=== PATIENT | male | born 1985 | race Caucasian/White ===

== ENCOUNTER 2019-09-03 06:06 | Emergency (ER) | payer BC, SELFPAY ==
--- NOTE | ~2019-09-03 | CT_ITS ---
EXAMINATION: CT abdomen pelvis wo con DATE: 09/03/2019 06:47 INDICATION: Left lower quadrant abdominal pain and flank pain. TECHNIQUE: Computed tomography (CT) of the abdomen and pelvis was performed without intravenous contr ast. Automated exposure control and iterative reconstruction technique were employed. The dose-length product was 403.06 mGy-cm. COMPARISON: 06/14/2013 FINDINGS: Lung bases are clear. Heart size is normal. No pericardial or pleural effusion. Small sliding-type hi atal hernia. Approximate 8 mm hypodense lesion in segment 8 of the liver. Similar sized and ill-defin ed hypodense lesion in the spleen which is unchanged since the prior study likely benign hemangioma. Gallbladder, pancreas, bilateral adrenal glands and right kidney are normal. There is an obstructing 1 mm stone in the distalmost left ureter approximately 1 cm from the ureterovesicular junction. There is mild left hydroureteronephrosis and left periureteral stranding. Wall thickening throughout the c olon and at several loops of small bowel which appears to demonstrate fat attenuation most likely fat ty infiltration related to body habitus no bowel obstruction. Appendix is normal. Bladder is normal. No free intraperitoneal gas or fluid. Fat-containing umbilical hernia. No pathologically enlarged abd ominal or pelvic lymphadenopathy. Mild thoracolumbar dextrocurvature. IMPRESSION: 1. Obstructing 1 mm distal left ureteral stone with mild left hydroureteronephrosis. 2. Likely benign 8 mm ill-defined hypodense hepatic lesion which in the absence of known liver diseas e or primary malignancy is likely benign requiring no further follow-up. Patient does have history of liver disease or primary cancer would recommend follow-up contrast-enhanced MRI in 3-6 months. 3. Fat-containing umbilical hernia. Reviewed, dictated and finalized at location A. IMPRESSION: 1. Obstructing 1 mm distal left ureteral stone with mild left hydroureteronephr osis. 2. Likely benign 8 mm ill-defined hypodense hepatic lesion which in the absence of known liver disease or primary malignancy is likely benign requiring no fur ther follow-up. Patient does have history of liver disease or primary cancer wo uld recommend follow-up contrast-enhanced MRI in 3-6 months. 3. Fat-containing umbilical hernia.
[2019-09-03 06:10] VITALS: BP 173/105; PULSE 77; RESP 15; TEMP 36.6; O2SAT 90
[2019-09-03 06:26] LABS: Basophils Absolute Auto 0.1 K/mm3 (0.0-0.1); Basophils Percent Auto 0.6 % (0.2-1.2); Eosinophils Absolute Auto 0.1 K/mm3 (0-0.3); Eosinophils Percent Auto 0.9 % (0-4.4); Hematocrit 42.6 % (42.0-52.0); Hemoglobin 14.8 g/dL (14.0-18.0); Immature Granulocyte Absolute 0.06 K/mm3 (0.00-0.031); Immature Granulocyte Percent A 0.5 % (0-0.5); Lymphocytes Absolute Auto 1.86 K/mm3 (0.9-3.2); Lymphocytes Percent Auto 15.8 % (18.3-44.2); Mean Corpuscular HGB Conc 34.7 g/dl (32-36); Mean Corpuscular Hemoglobin 31.8 pg (26-34); Mean Corpuscular Volume 91.4 fl (80-100); Mean Platelet Volume 9.8 fl (7.4-10.4); Monocytes Percent Auto 8.3 % (2.6-8.5); Neutrophils Absolute Auto 8.7 K/mm3 (1.3-6.7); Neutrophils Percent Auto 73.9 % (45.5-73.1); Platelet Count Result 240 k/mm3 (150-375); Red Blood Count 4.66 M/mm3 (4.6-6.20); Red Cell Distribution Width 12.7 % (11.5-14.5); White Blood Count 11.8 K/mm3 (4.5-10.0)
[2019-09-03] MEDS: SODIUM CHLORIDE 0.9% IV 1,000 ML 999 ML IV CONT ×2 (06:28→07:27)
[2019-09-03] MEDS: ONDANSETRON INJ 4 MG/2 ML VIAL IV PUSH (06:31)
[2019-09-03] MEDS: MORPHINE SULFATE 4 MG/ML INJ IV PUSH (06:31)
--- NOTE | 2019-09-03 06:31 | ED.ABDPAIN ---
HPI - Abdominal Pain General Chief Complaint: Abdominal Pain <Bib Clark MD - Last Filed: 09/03/19 07:10> Stated Complaint: abd pain <Bib Clark MD - Last Filed: 09/03/19 07:10> Time Seen by Provider: 09/03/19 06:17 <Bib Clark MD - Last Filed: 09/03/19 07:10> History of Present Illness HPI narrative: Patient is a 34-year-old male who presents to the ER with sudden onset of lower quadrant abdominal pain. Began at 3 AM. Radiates to left back. No fevers or chills. Pain is sharp and coming in waves. Associated with nausea and diaphoresis. Has not had pain like this before. Has found no alleviating factors. <Bib Clark MD - Last Filed: 09/03/19 07:10> Related Data Home Medications: Home Medications Medication Instructions Recorded Confirmed lamotrigine 09/03/19 <Bib Clark MD - Last Filed: 09/03/19 07:10> Allergies/Adverse Reactions: Allergies Allergy/AdvReac Type Severity Reaction Status Date / Time amoxicillin Allergy Intermediate ATRIAL FIB Verified 06/05/19 09:01 <Bib Clark MD - Last Filed: 09/03/19 07:10> Review of Systems Review of Systems: All systems reviewed & are unremarkable except as noted in HPI and below <Bib Clark MD - Last Filed: 09/03/19 07:10> Constitutional: Constitutional: Denies chills, Denies fever(s) and Denies weakness <Bib Clark MD - Last Filed: 09/03/19 07:10> Comments: Positive for diaphoresis <Bib Clark MD - Last Filed: 09/03/19 07:10> ENT: Denies nasal congestion and Denies sore throat <Bib Clark MD - Last Filed: 09/03/19 07:10> Cardiovascular: Cardiovascular: Denies chest pain and Denies radiating jaw, neck or arm pain <Bib Clark MD - Last Filed: 09/03/19 07:10> Respiratory: Respiratory: Denies cough and Denies dyspnea <Bib Clark MD - Last Filed: 09/03/19 07:10> Gastrointestinal: Gastrointestinal: Reports abdominal pain, Reports nausea and Denies vomiting <Bib Clark MD - Last Filed: 09/03/19 07:10> Genitourinary: Genitourinary: Reports hematuria, Denies oliguria, Denies dysuria and Reports urinary frequency <Bib Clark MD - Last Filed: 09/03/19 07:10> PMFSH Past Medical History Medical History: Medical History (Updated 09/03/19 @ 07:26 by Xiomara Thompson MD) No pertinent past medical history <Bib Clark MD - Last Filed: 09/03/19 07:10> Surgical History Surgical History: Surgical History (Updated 09/03/19 @ 06:37 by Bib Clark MD) History of tonsillectomy <Bib Clark MD - Last Filed: 09/03/19 07:10> Family History Family History: Family History (System 06/05/19 @ 09:01 by Yudy Sanabria) Mother Depression Family history of osteoarthritis Father Hypertension Family history of heart disease in male family member before age 55 <Bib Clark MD - Last Filed: 09/03/19 07:10> Social History Social History: Social History (System 06/05/19 @ 09:01 by Yudy Sanabria) Smoking status: Former smoker Alcohol intake: current <Bib Clark MD - Last Filed: 09/03/19 07:10> Exam Narrative: Exam Narrative: GENERAL: Uncomfortable-appearing, well-nourished, and in mild distress. HEAD: Normocephalic, atraumatic. ENT: Mucous membranes moist. CHEST: Clear to auscultation. No respiratory distress. HEART: Regular rate and rhythm. Normal peripheral pulses. ABDOMEN: Soft, nontender, nondistended. EXTREMITIES: Normal range of motion. No edema. SKIN: Cool, pale, diaphoretic, no rash. NEURO: Alert and oriented x3. <Bib Clark MD - Last Filed: 09/03/19 07:10> Course Course Emergency Course: Awaiting CT results. Toradol added as no pain control with morphine. SILVIANO to Dr. Thompson. <Bib Clark MD - Last Filed: 09/03/19 07:10> Reevaluation(s) Reevaluation #1: Assumed care from Dr. Clark at 7 AM. Face-to-f
[2019-09-03 06:32] LABS: Add Urine Microscopic? YES; Appearance Urine Turbid (Clear); Bilirubin Urine Negative (Negative); Blood Urine 3+ (Negative); Color Urine Yellow (Yellow); Glucose Urine UA Negative (Negative); Ketones Urine Trace mg/dL (Negative); Leukocyte Esterase Ur Negative LEU/UL (Negative); Mucus Urine Few /lpf; Nitrate Urine Negative (Negative); Protein Urine 2+ mg/dL (Negative); RBC Urine >75 /hpf (0-2); Specific Grav Ur 1.027 (1.001-1.035); Uric Acid Crystals Urine Many /hpf; Urobilinogen Urine Negative mg/dL (<2.0)
[2019-09-03 06:38] LABS: Blood Urea Nitrogen 13 mg/dL (9-20); Calcium 9.4 mg/dL (8.4-10.2); Carbon Dioxide 20 mmol/L (22-30); Chloride 100 mmol/L (98-107); Estimated Glomerular Filt Rate > 60; Glucose 155 mg/dL (75-110); Potassium 3.6 mmol/L (3.4-5.0); Sodium 133 mmol/L (137-145)
[2019-09-03] MEDS: KETOROLAC 30 MG/ML VIAL (*BKC) IV PUSH (07:04)
[2019-09-03 09:12] VITALS: BP 160/55; PULSE 72; RESP 16; O2SAT 99
[2019-09-03 10:26] VITALS: BP 160/72; PULSE 80; RESP 16; O2SAT 99
== END 2019-09-03 10:28 | disposition home or self-care (01) ==
PROVIDERS: Emergency Medicine; Emergency Provider Emergency Medicine
DX: N13.2 Hydronephrosis with renal and ureteral calculous obstruction (principal); K42.9 Umbilical hernia without obstruction or gangrene; K76.9 Liver disease, unspecified
CPT/HCPCS: 36415; 74176; 80048; 81001; 85025; 87086; 96361; 96365; 96375; 99284; J0696; J1885; J2270; J2405; J7030

== ENCOUNTER 2019-09-05 12:55 | Emergency (ER) | payer BC, SELFPAY ==
--- NOTE | ~2019-09-05 | CT_ITS ---
EXAMINATION: CT abdomen pelvis wo con DATE: 09/05/2019 15:41 INDICATION: Left flank pain and hematuria TECHNIQUE: Computed tomography (CT) of the abdomen and pelvis was performed without intravenous contr ast. The dose-length product was 317.03 mGy-cm. Automated exposure control and iterative reconstructi on technique were employed. COMPARISON: CT dated 09/03/2019 FINDINGS: Lung bases unremarkable. Heart size normal. No significant pleural or pericardial effusion. Small hiatal hernia. No significant vascular abnormality. No lymphadenopathy. Small fat-containing umbilical hernia. The liver, spleen, pancreas, adrenal glands and right kidney a re unremarkable. There is mild left perinephric stranding. There is left hydroureteronephrosis to the UVJ with periureteral edema. No obstructing stone or mass identified. Bladder is unremarkable. There is focal saccular appearance to the distal sigmoid colon, nonspecific, although no obstructing mass identified. No free air or free fluid. Nonobstructive bowel gas pattern. Normal appendix. IMPRESSION: 1. Left hydroureteronephrosis with. Nephric and periureteral edema. No obstructing stone identified. Differential diagnosis includes sequela of recently passed stone and ascending urinary tract infectio n. Reviewed, dictated and finalized at location A. IMPRESSION: 1. Left hydroureteronephrosis with. Nephric and periureteral edema. No obstruct ing stone identified. Differential diagnosis includes sequela of recently passe d stone and ascending urinary tract infection.
[2019-09-05 13:37] VITALS: BP 157/98; PULSE 72; RESP 24; TEMP 36.1; O2SAT 99
[2019-09-05 13:56] LABS: Basophils Percent Auto 0.3 % (0.2-1.2); Eosinophils Percent Auto 0.1 % (0-4.4); Hematocrit 42.1 % (42.0-52.0); Hemoglobin 14.6 g/dL (14.0-18.0); Immature Granulocyte Absolute 0.07 K/mm3 (0.00-0.031); Immature Granulocyte Percent A 0.6 % (0-0.5); Lymphocytes Absolute Auto 0.79 K/mm3 (0.9-3.2); Lymphocytes Percent Auto 7.1 % (18.3-44.2); Mean Corpuscular HGB Conc 34.7 g/dl (32-36); Mean Corpuscular Hemoglobin 31.6 pg (26-34); Mean Corpuscular Volume 91.1 fl (80-100); Mean Platelet Volume 9.5 fl (7.4-10.4); Monocytes Absolute Auto 0.6 K/mm3 (0.1-0.6); Monocytes Percent Auto 5.6 % (2.6-8.5); Neutrophils Absolute Auto 9.7 K/mm3 (1.3-6.7); Neutrophils Percent Auto 86.3 % (45.5-73.1); Platelet Count Result 241 k/mm3 (150-375); Red Blood Count 4.62 M/mm3 (4.6-6.20); Red Cell Distribution Width 12.7 % (11.5-14.5); White Blood Count 11.2 K/mm3 (4.5-10.0)
[2019-09-05 14:15] LABS: Alanine Aminotransferase 69 U/L (4-50); Albumin Level 4.8 g/dL (3.5-5.1); Alkaline Phosphatase 87 U/L (38-126); Aspartate Amino Transferase 74 U/L (17-59); Bilirubin,Total 0.5 mg/dL (0.2-1.3); Blood Urea Nitrogen 9 mg/dL (9-20); Calcium 9.6 mg/dL (8.4-10.2); Carbon Dioxide 21 mmol/L (22-30); Chloride 103 mmol/L (98-107); Estimated CRCL calculation 88 ml/min; Estimated Glomerular Filt Rate > 60; Glucose 121 mg/dL (75-110); Lipase 59 U/L (23-300); Potassium 3.5 mmol/L (3.4-5.0); Sodium 135 mmol/L (137-145)
[2019-09-05 14:50] LABS: Add Urine Microscopic? YES; Appearance Urine Turbid (Clear); Bilirubin Urine Negative (Negative); Blood Urine 3+ (Negative); Color Urine Yellow (Yellow); Glucose Urine UA Negative (Negative); Ketones Urine 2+ mg/dL (Negative); Leukocyte Esterase Ur Trace LEU/UL (Negative); Mucus Urine Few /lpf; Nitrate Urine Negative (Negative); Protein Urine 1+ mg/dL (Negative); RBC Urine >75 /hpf (0-2); Specific Grav Ur 1.027 (1.001-1.035); Squamous Epithelial Cell Urine Moderate /hpf (Few); Urobilinogen Urine Negative mg/dL (<2.0)
[2019-09-05] MEDS: ONDANSETRON INJ 4 MG/2 ML VIAL IV PUSH (15:28)
[2019-09-05] MEDS: MORPHINE SULFATE 4 MG/ML INJ IV PUSH (15:28)
[2019-09-05] MEDS: SODIUM CHLORIDE 0.9% IV 1,000 ML 999 ML IV CONT ×2 (15:28→16:26)
[2019-09-05] MEDS: KETOROLAC 15 MG/ML VIAL (*BKC) IV PUSH (16:26)
--- NOTE | 2019-09-05 16:47 | ED.ABDPAIN ---
HPI - Abdominal Pain General Chief Complaint: Abdominal Pain Stated Complaint: Kidney stones - seen tues Time Seen by Provider: 09/05/19 14:32 History of Present Illness HPI narrative: Patient is a 34-year-old male who presents the ER with left lower quadrant and left flank pain. Patient was seen 2 days ago for a 1 mm stone. He reports he was able to pass the stone at home but continues to have discomfort. Toradol helped last time. No fevers or chills. When pain comes he is nauseated and vomits and also becomes diaphoretic. This similar to his previous presentation. Reports he has been on ciprofloxacin for 4 doses. Urine was cultured and negative on the previous visit. He has not been taking Flomax. Related Data Home Medications Medication Instructions Recorded Confirmed lamotrigine 09/03/19 Allergies Allergy/AdvReac Type Severity Reaction Status Date / Time amoxicillin Allergy Intermediate ATRIAL FIB Verified 06/05/19 09:01 Review of Systems Review of Systems: All systems reviewed & are unremarkable except as noted in HPI and below Constitutional: Constitutional: Denies chills, Denies fever(s) and Denies weakness ENT: Denies nasal congestion and Denies sore throat Cardiovascular: Cardiovascular: Denies chest pain and Denies rapid heart rate Gastrointestinal: Gastrointestinal: Reports abdominal pain, Denies diarrhea, Reports nausea and Reports vomiting Genitourinary: Genitourinary: Denies dysuria, Reports urinary frequency and Denies urinary incontinence PMFSH Past Medical History Medical History (Updated 09/05/19 @ 17:45 by Bib Clark MD) Kidney stone Surgical History Surgical History (Updated 09/03/19 @ 06:37 by Bib Clark MD) History of tonsillectomy Family History Family History (System 06/05/19 @ 09:01 by uYdy Sanabria) Mother Depression Family history of osteoarthritis Father Hypertension Family history of heart disease in male family member before age 55 Social History Social History (System 06/05/19 @ 09:01 by Yudy Sanabria) Smoking status: Former smoker Alcohol intake: current Exam Narrative: Exam Narrative: GENERAL: Uncomfortable-appearing, well-nourished, and in no acute distress. HEAD: Normocephalic, atraumatic. CHEST: Clear to auscultation. No respiratory distress. HEART: Regular rate and rhythm. Normal peripheral pulses. ABDOMEN: Soft, mild left lower abdominal discomfort without guarding, nondistended. EXTREMITIES: Normal range of motion. No edema. SKIN: Warm, moist, no rash. NEURO: Alert and oriented x3. PSYCH: Normal mood and affect. Course Course Emergency Course: Pain markedly improved with Toradol. Informed of results. Patient dehydrated will receive 2 L of IV fluid. We will also start him on Flomax here. Recommend he continue ciprofloxacin. Discontinue [place] and start Percocet at home. Needs follow-up with urology. Vital Signs Vital signs: Vital Signs Temperature 97.0 F L 09/05/19 13:37 Pulse Rate 72 09/05/19 13:37 Respiratory Rate 24 H 09/05/19 13:37 Blood Pressure 157/98 H 09/05/19 13:37 Pulse Oximetry 99 09/05/19 13:37 Temperature 97.0 F L 09/05/19 13:37 Pulse Rate 72 09/05/19 13:37 Respiratory Rate 24 H 09/05/19 13:37 Blood Pressure 157/98 H 09/05/19 13:37 Pulse Oximetry 99 09/05/19 13:37 MDM - Abdominal Pain Lab Data Result diagrams: 09/05/19 13:44 09/05/19 13:44 Labs: Lab Results 09/05/19 09/05/19 09/05/19 Range/Units 13:44 13:44 14:28 WBC 11.2 H (4.5-10.0) K/mm3 RBC 4.62 (4.6-6.20) M/mm3 Hgb 14.6 (14.0-18.0) g/dL Hct 42.1 (42.0-52.0) % MCV 91.1 (80-100) fl MCH 31.6 (26-34) pg MCHC 34.7 (32-36) g/dl RDW 12.7 (11.5-14.5) % Plt Count 241 (150-375) k/mm3 MPV 9.5 (7.4-10.4) fl Immature Gran % (Auto) 0.6 H (0-0.5) % Neut % (Auto) 86.3 H (45.5-73.1) % Lymph % (Auto) 7
[2019-09-05 17:00] VITALS: BP 122/80; PULSE 80; RESP 20; TEMP 36.7; O2SAT 99
[2019-09-05] MEDS: TAMSULOSIN HCL 0.4 MG CAPSULE PO (17:14)
== END 2019-09-05 16:00 | disposition home or self-care (01) ==
PROVIDERS: Emergency Provider Emergency Medicine
DX: R10.32 Left lower quadrant pain (principal); Z87.442 Personal history of urinary calculi; Z87.891 Personal history of nicotine dependence; N13.30 Unspecified hydronephrosis
CPT/HCPCS: 36415; 74176; 80053; 81001; 83690; 85025; 96361; 96374; 96375; 99284; A9270; J1885; J2270; J2405; J7030

== ENCOUNTER 2020-09-03 15:29 | Emergency (ER) | payer BC, SELFPAY ==
[2020-09-03 15:43] VITALS: BP 133/90; PULSE 87; RESP 20; TEMP 36.6; O2SAT 98
--- NOTE | 2020-09-03 15:54 | ED.EXTPRO ---
HPI - Extremity Problem General Chief complaint: Extremity Problem,Nontraumatic Stated complaint: lt foot pain Source: patient and RN notes reviewed Limitations: no limitations History of Present Illness HPI Narrative: The patient, previously mostly healthy, presents with left foot pain. States she has a shorter, 1 day history of left foot discomfort at the angle of his ankle where he noticed some superficial swelling adjacent to his veins. He complains of mild pain and improving swelling since. No trauma, redness, Related Data Allergies Allergy/AdvReac Type Severity Reaction Status Date / Time amoxicillin Allergy Intermediate ATRIAL FIB Verified 09/03/20 15:50 Review of Systems Review of Systems: Narrative: General/Constitutional: No weight loss,fever Eyes: N0: Redness,discharge Ears/Nose/Throat: No: Epistaxis,ear discharge Respiratory: Denies: Hemoptysis Gastrointestinal: No Vomiting, Bleeding-rectal Skin: No Lumps, eruption Neurologic: No Focal Weakness,Sz Hematologic: Denies: Petechiae/Purpura Psychiatric: No: Suicida ideationl All Other Systems: Reviewed and Negative [facility] Past Medical History Medical History (Updated 09/03/20 @ 16:59 by Benito Russo MD) Kidney stone Surgical History Surgical History (Updated 09/03/19 @ 06:37 by Bib Clark MD) History of tonsillectomy Family History Family History (System 06/05/19 @ 09:01 by Yudy Sanabria) Mother Depression Family history of osteoarthritis Father Hypertension Family history of heart disease in male family member before age 55 Social History Social History (System 06/05/19 @ 09:01 by Yudy Sanabria) Smoking status: Former smoker Alcohol intake: current Comments At time of signature, agree with nursing past medical, surgical, social and family history. There is no relevant family history pertinent to the presenting complaint Exam Narrative: Exam Narrative: General Appearance: Well appearing, conjunctiva clear Mouth/Throat: Normal appearing, Normal lips. Supple Respiratory: Airway patent, No respiratory distress Skin: Warm, Dry, Normal color;, small somewhat linear, 1.5 cm soft almost cystic swelling below the inferior extensor retinaculum MS-foot: Normal strength (mostly intact, limited flexion/extension by pain), Tenderness (extensor, with mild decreased ROM), Swelling (extensor), Other (no anterior drawer, no collateral laxity, no Achilles tenderness, no fifth MT tenderness) Neurological: A&O x3, Speech clear, CN II-XII intact Psychiatric: Normal mood, Normal affect Course Vital Signs Vital signs: Vital Signs Temperature 97.8 F 09/03/20 15:43 Pulse Rate 87 09/03/20 15:43 Respiratory Rate 20 09/03/20 15:43 Blood Pressure 133/90 09/03/20 15:43 Pulse Oximetry 98 09/03/20 15:43 Temperature 97.8 F 09/03/20 15:43 Pulse Rate 87 09/03/20 15:43 Respiratory Rate 20 09/03/20 15:43 Blood Pressure 133/90 09/03/20 15:43 Pulse Oximetry 98 09/03/20 15:43 Discharge Plan Discharge Clinical Impression: Superficial thrombophlebitis Qualifiers: Superficial thrombophlebitis-Involved body area: lower extremity Laterality: left Qualified Code(s): I80.02 - Phlebitis and thrombophlebitis of superficial vessels of left lower extremity Patient Disposition: Home, Self-Care Condition: Stable Instructions: Ganglion Cysts (ED), Superficial Thrombophlebitis (ED) Additional Instructions: You may take OTC pain medicines also Prescriptions: New tramadol 50 mg tablet 50 mg PO TID PRN (Reason: pain) Qty: 14 RF: 0 Follow-up/Referrals: Rigoberto Najera DO [Primary Care Provider] -
== END 2020-09-03 16:17 | disposition home or self-care (01) ==
PROVIDERS: Emergency Provider Emergency Medicine; PCP Internal Medicine
DX: I80.02 Phlebitis and thrombophlebitis of superficial vessels of left lower extremity (principal); Z87.891 Personal history of nicotine dependence; I34.1 Nonrheumatic mitral (valve) prolapse
CPT/HCPCS: 99213; G0463

== ENCOUNTER 2020-09-07 11:44 | Outpatient (CLI) | payer BC, SELFPAY ==
--- NOTE | ~2020-09-07 | XR_ITS ---
XR foot LT min 3V DATE: 09/07/2020 11:55 INDICATION: Dorsal foot pain TECHNIQUE: 4 views COMPARISON: None FINDINGS: No fracture or dislocation, periosteal reaction or bone destruction. IMPRESSION: Negative Reviewed, dictated and finalized at location B. IMPRESSION: Negative
== END 2020-09-07 11:45 | disposition home or self-care (01) ==
PROVIDERS: PCP Internal Medicine; Visit Provider Clinical Nurse Specialist
DX: M79.89 Other specified soft tissue disorders (principal)
CPT/HCPCS: 73630

== ENCOUNTER 2020-10-23 16:06 | Outpatient (CLI) | payer BC, SELFPAY ==
--- NOTE | ~2020-10-23 | XR_ITS ---
EXAMINATION: XR knee LT min 4V DATE: 10/23/2020 16:35 INDICATION: Left knee pain and swelling. TECHNIQUE: 4 views of left knee were obtained. COMPARISON: None. FINDINGS: Bone alignment is normal. No fracture. Joint spaces are well maintained. There is no knee j oint effusion. There is prepatellar soft tissue swelling, consistent with bursitis. IMPRESSION: 1. Mild prepatellar bursitis. Reviewed, dictated and finalized at location A.
== END 2020-10-23 16:07 | disposition home or self-care (01) ==
LOC: ANHIMG 16:09
PROVIDERS: PCP Internal Medicine; Visit Provider Nurse Practitioner
DX: M25.562 Pain in left knee (principal); M71.562 Other bursitis, not elsewhere classified, left knee
CPT/HCPCS: 73564

== ENCOUNTER 2021-06-11 09:16 | Outpatient (CLI) | payer BC, SELFPAY ==
--- NOTE | ~2021-06-11 | US_ITS ---
EXAMINATION: US abdomen limited EXAM DATE: 06/11/2021 09:56 INDICATION: Elevated liver function tests. TECHNIQUE: Multiple grayscale and Doppler images of the abdomen right upper quadrant were obtained (kylie y a technologist who performed the scan) and subsequently reviewed. There is no prior study for cayla messina. FINDINGS: The pancreatic head and body are normal in appearance. The pancreatic tail is not visualized. The l iver has normal echogenicity and contour. There are no focal liver lesions identified. There is no evidence of intrahepatic biliary duct dilation. Portal venous flow was seen in the hepatopedal, nor mal direction and has normal Doppler waveform. No right-sided hydronephrosis. Common bile duct measures 4 mm, which is normal. The gallbladder wall is normal in thickness, with ex pected amount of distention. No sonographic evidence of pericholecystic fluid. There is no cholelit hiases. Technologist performing exam reports patient did not demonstrate sonographic Romero's sign. Please note that this sign is less reliable in patients who have received pain medication. IMPRESSION: Unremarkable abdominal ultrasound exam. Reviewed, dictated and finalized at location B.
== END 2021-06-11 09:17 | disposition home or self-care (01) ==
PROVIDERS: PCP Internal Medicine; Visit Provider Nurse Practitioner
DX: R74.01 Elevation of levels of liver transaminase levels (principal)
CPT/HCPCS: 76705

== ENCOUNTER 2021-06-16 12:51 | Outpatient (CLI) | payer BC, SELFPAY ==
--- NOTE | ~2021-06-16 | XR_ITS ---
EXAMINATION: XR shoulder LT min 2V DATE: 06/16/2021 13:15 INDICATION: Anterior left clavicle pain. TECHNIQUE: 4 views of left shoulder were obtained. COMPARISON: None. FINDINGS: Bone alignment is normal. No fracture. Joint spaces are well maintained. IMPRESSION: 1. Normal left shoulder. Reviewed, dictated and finalized at location B. IMPRESSION: 1. Normal left shoulder.
--- NOTE | ~2021-06-16 | XR_ITS ---
EXAMINATION: XR knee RT 2V DATE: 06/16/2021 13:15 INDICATION: Right knee pain. Gout. TECHNIQUE: 2 views of right knee with weightbearing were obtained. COMPARISON: None. FINDINGS: Bone alignment is normal. No fracture. There is mild osteoarthritis of patellofemoral shaw rtment. There is a small knee joint effusion. There is mild superficial infrapatellar bursitis. IMPRESSION: 1. Mild right knee osteoarthritis. 2. Small right knee joint effusion. 3. Mild superficial infrapatellar bursitis. Reviewed, dictated and finalized at location B.
[2021-06-16 13:44] LABS: CRP 4.2 mg/dL (<1.0); Uric Acid 10.6 mg/dL (3.5-8.5)
[2021-06-16 13:48] LABS: Iron 59 ug/dL (49-181)
[2021-06-16 13:57] LABS: Percent Iron Saturation 19 % (20-50)
[2021-06-16 14:18] LABS: Hepatitis B Surface Antigen Negative (Negative)
[2021-06-16 14:22] LABS: HIV 1/2 Ab P24 Ag Result Negative (Negative)
[2021-06-16 14:36] LABS: Hepatitis C Virus Antibody Negative (Negative)
[2021-06-21 08:28] LABS: Gliadin AB, IgG <1.0 U/mL (<15.0); Reticulin IgA Negative (Negative); TTG IGA AB <1.0 U/mL (<15.0)
== END 2021-06-16 12:52 | disposition home or self-care (01) ==
PROVIDERS: PCP Internal Medicine; Visit Provider Nurse Practitioner
DX: M25.512 Pain in left shoulder (principal); R74.01 Elevation of levels of liver transaminase levels; M25.50 Pain in unspecified joint; R70.0 Elevated erythrocyte sedimentation rate; M17.11 Unilateral primary osteoarthritis, right knee; M25.461 Effusion, right knee; M71.561 Other bursitis, not elsewhere classified, right knee
CPT/HCPCS: 36415; 73030; 73560; 82728; 83516; 83540; 83550; 84550; 86140; 86255; 86703; 86803; 87340; G0432

== ENCOUNTER 2021-08-25 10:36 | Emergency (ER) | payer BC, SELFPAY ==
[2021-08-25 10:45] VITALS: BP 170/145; PULSE 125; RESP 24; TEMP 36.4; O2SAT 99
--- NOTE | 2021-08-25 10:45 | ED.ANXIETY ---
HPI - Anxiety General Chief Complaint: Nausea/Vomiting/Diarrhea Stated Complaint: vomitting/heart flutter Time Seen by Provider: 08/25/21 10:51 Source: patient Mode of arrival: ambulatory Limitations: no limitations History of Present Illness HPI narrative: 36-year-old male presents with concern for acute onset of heart fluttering, vomiting. He reports symptoms started overnight. He reports he has not been able to keep very much fluid or food down, he feels like his blood pressure might be low and his blood pressure is bottoming out . He reports feeling clammy. He denies body aches, fever, diarrhea, abdominal pain, headache, upper respiratory symptoms. He reports he had similar episode of this 2 days ago for which he called 911, he did not go to the emergency room at that time. He followed up with his primary care doctor yesterday where he was diagnosed with anxiety and given a prescription for sertraline which she has not yet started. Other than the episode 2 days ago and today's episode he denies any similar episodes in the past. He reports in the past he has been diagnosed with diastolic dysfunction by dbas, he does not currently see a dbas. He denies chest pain, shortness of breath MD complaint: anxiety Related Data Allergies Allergy/AdvReac Type Severity Reaction Status Date / Time amoxicillin Allergy Intermediate ATRIAL FIB Verified 08/24/21 09:45 Review of Systems Review of Systems: CONSTITUTIONAL: Denies malaise, chills, or fever. EYES: Denies visual changes, redness, or discharge. ENT: Denies rhinorrhea, congestion, sinus pain, otalgia or sore throat. CARDIOVASCULAR: Denies chest pain, palpitations, or edema. Reports sensation of heart fluttering RESPIRATORY: Denies cough or dyspnea. GASTROINTESTINAL: Denies abdominal pain, diarrhea. Reports nausea and vomiting GENITOURINARY: Denies dysuria or hematuria. SKIN: Denies rash or itching. MUSCULOSKELETAL: Denies back pain, joint pain, or myalgia. NEUROLOGIC: Denies numbness, weakness, or headache. PSYCHIATRIC: Reports anxiety All systems reviewed & are unremarkable except as noted in HPI and below PMFSH Past Medical History Medical History (Updated 08/25/21 @ 11:12 by Karen Barnhart NP) Anemia Elevated sed rate Family history of cardiovascular disease Hyperlipidemia Kidney stone Transaminitis Surgical History Surgical History History of tonsillectomy Hx of tonsillectomy Family History Family History Mother Depression Family history of osteoarthritis Father Hypertension Family history of heart disease in male family member before age 55 Sibling Alcoholism Depression Anxiety Grandparent Breast cancer Heart disease Hypertension Alcoholism Social History Social History Social History: caffeine- occasionally Smoking status: Former smoker Alcohol intake: current Alcohol use details: occasionally Comments At time of signature, agree with nursing past medical, surgical, social and family history. There is no relevant family history pertinent to the presenting complaint Exam Narrative: GENERAL: Shaky, in no acute distress HEAD: Normocephalic, atraumatic. EYES: PERRLA, sclera clear, and EOMI. ENT: Nares clear. Mucous membranes moist. NECK: Supple. CHEST: No respiratory distress. Clear to auscultation. No bony deformities, no asymmetry. Speaks in full sentences. HEART: Fast rate and regular rhythm. No murmur heard. Normal peripheral pulses. ABDOMEN: Soft, nontender, nondistended, normal active bowel sounds, no palpable masses. EXTREMITIES: Normal range of motion. No edema. Normal strength and sensation. SKIN: Warm, clammy, no visible rash. NEURO: Alert and oriented x3. PSYCH: Anxious Course Course Emergency Course: Discussed limited diagnostic capabili
--- NOTE | 2021-08-25 10:49 | ECG_ITS ---
Measurements Intervals [place] Rate: 105 P: 48 MT: 127 QRS: 56 QRSD: 82 T: 59 QT: 330 QTc: 438 Interpretive Statements SINUS TACHYCARDIA ABNORMAL RHYTHM ECG NO PREVIOUS ECG AVAILABLE FOR COMPARISON Electronically Signed On 08-25-2021 12:46:26 CDT by Marci Light M.D.
[2021-08-25 11:05] LABS: Glucose Point of Care 137 mg/dl (65-105)
== END 2021-08-25 11:21 | disposition home or self-care (01) ==
PROVIDERS: Emergency Provider Nurse Practitioner; PCP Internal Medicine
DX: F41.9 Anxiety disorder, unspecified (principal); Z87.891 Personal history of nicotine dependence; E78.5 Hyperlipidemia, unspecified
CPT/HCPCS: 82948; 93005; 99213; G0463

== ENCOUNTER 2021-12-15 12:36 | Outpatient (CLI) | payer OTHER, SELFPAY ==
[2021-12-15 13:02] LABS: Basophils Absolute Auto 0.1 K/mm3 (0.0-0.1); Basophils Percent Auto 0.8 % (0.2-1.2); Hematocrit 46.2 % (42.0-52.0); Hemoglobin 15.7 g/dL (14.0-18.0); Immature Granulocyte Absolute 0.07 K/mm3 (0.00-0.031); Immature Granulocyte Percent A 0.6 % (0-0.5); Lymphocytes Absolute Auto 1.31 K/mm3 (0.9-3.2); Lymphocytes Percent Auto 11.7 % (18.3-44.2); Mean Corpuscular Hemoglobin 29.7 pg (26-34); Mean Corpuscular Volume 87.5 fl (80-100); Mean Platelet Volume 9.5 fl (7.4-10.4); Monocytes Percent Auto 8.8 % (2.6-8.5); Neutrophils Absolute Auto 8.8 K/mm3 (1.3-6.7); Neutrophils Percent Auto 78.1 % (45.5-73.1); Platelet Count Result 314 k/mm3 (150-375); Red Blood Count 5.28 M/mm3 (4.6-6.20); Red Cell Distribution Width 12.7 % (11.5-14.5); White Blood Count 11.2 K/mm3 (4.5-10.0)
[2021-12-15 13:13] LABS: Alanine Aminotransferase 28 U/L (6-50); Albumin Level 4.9 g/dL (3.5-5.1); Alkaline Phosphatase 101 U/L (38-126); Anion Gap 11 mmol/L (8-16); Aspartate Amino Transferase 36 U/L (17-59); Blood Urea Nitrogen 10 mg/dL (9-20); Calcium 9.8 mg/dL (8.4-10.2); Carbon Dioxide 22 mmol/L (22-30); Chloride 106 mmol/L (98-107); Estimated Glomerular Filt Rate > 60; Glucose 122 mg/dL (65-110); Magnesium 1.7 mg/dL (1.6-2.3); Potassium 3.7 mmol/L (3.4-5.0); Sodium 139 mmol/L (137-145)
== END 2021-12-15 12:37 | disposition home or self-care (01) ==
LOC: ANHLAB 12:36
PROVIDERS: PCP Internal Medicine; Visit Provider Nurse Practitioner
DX: R55 Syncope and collapse (principal)
CPT/HCPCS: 36415; 80053; 83735; 84443; 85025

== ENCOUNTER 2021-12-15 12:55 | Outpatient (CLI) | payer OTHER, SELFPAY ==
--- NOTE | ~2021-12-15 | MR_ITS ---
EXAMINATION: MR brain/brain stem wo/w con DATE: 12/15/2021 13:37 INDICATION: Syncope. TECHNIQUE: Magnetic resonance imaging (MRI) of the brain and brainstem was performed without and with 15 mL MultiHance intravenous contrast. COMPARISON: Head CT 02/21/2015 FINDINGS: There is no intracranial hemorrhage, acute infarction, or abnormal intracranial mass lesion . The ventricles are normal in size. The orbits are normal. The paranasal sinuses are clear. The mast oid air cells are normal. IMPRESSION: 1. Normal brain. Reviewed, dictated and finalized at location B. IMPRESSION: 1. Normal brain.
== END 2021-12-15 12:56 | disposition home or self-care (01) ==
PROVIDERS: PCP Internal Medicine; Visit Provider Nurse Practitioner
DX: R55 Syncope and collapse (principal)
CPT/HCPCS: 36415; 70553; 80053; 83735; 84443; 85025; A9577

== ENCOUNTER 2022-01-03 13:58 | Outpatient (CLI) | payer OTHER, SELFPAY ==
[2022-01-05 10:00] LABS: PCP NEGATIVE ng/mL (<25)
[2022-01-13 15:04] LABS: Amphetamines NEGATIVE; Marijuana Metabolites POSITIVE
[2022-01-13 15:05] LABS: Barbiturates NEGATIVE; Benzodiazepines NEGATIVE; Cocaine Metabolites NEGATIVE
== END 2022-01-03 13:59 | disposition home or self-care (01) ==
LOC: ANHGOSHLAB 14:01
PROVIDERS: PCP Internal Medicine; Visit Provider Nurse Practitioner
DX: R55 Syncope and collapse (principal)
CPT/HCPCS: 80307

== ENCOUNTER 2022-01-18 09:49 | Outpatient (CLI) | payer OTHER, SELFPAY ==
--- NOTE | 2022-02-04 13:42 | WPDHOLTEREM ---
Holter/Event Monitor Holter/Event Monitor Date of procedure: 01/18/22 Holter/Event Procedure: 48 Hr Holter Monitor Indications: Syncope Conclusion: 1. 48 hour holter monitor on 01/18/22. 2. Underlying rhythm is sinus rhythm. HR range 61-197 bpm; average HR 120 bpm. HR art 197 bpm is at 14:09. 3. There are 4 premature supraventricular complexes. No supraventricular tachycardia. 4. There are 17 premature ventricular complexes. No ventricular tachycardia. 5. No sinoatrial or atrioventricular blocks. No significant pauses greater than 2 seconds. 6. No symptoms available for correlation.
== END 2022-01-18 09:50 | disposition home or self-care (01) ==
LOC: ANHCARD 09:51
PROVIDERS: PCP Internal Medicine; Visit Provider Clinical Nurse Specialist
DX: R55 Syncope and collapse (principal); R00.0 Tachycardia, unspecified
CPT/HCPCS: 93225; 93226

== ENCOUNTER 2022-11-01 15:50 | Outpatient (CLI) | payer OTHER, SELFPAY ==
--- NOTE | ~2022-11-01 | MR_ITS ---
EXAMINATION: MR knee RT wo con DATE: 11/01/2022 16:49 INDICATION: Right knee pain TECHNIQUE: Magnetic resonance imaging (MRI) of the right knee was performed without intravenous contr ast. Sequences included coronal PD-weighted FSE, coronal PD-weighted FS FSE, sagittal T2-weighted FS E, sagittal PD-weighted FS FSE and axial PD weighted fat saturated FSE. COMPARISON: Right knee radiographs dated 06/17/2019 FINDINGS: Medial compartment: Medial meniscus is normal. Articular cartilage is normal. Lateral compartment: Lateral meniscus is normal. Articular cartilage is normal. Patellofemoral compartment: Articular cartilage is normal. Ligaments and tendons: Anterior and posterior cruciate ligaments are normal. The fibular collateral ligament complex is norm al. There is thickening and prominent increased fluid signal centrally within the proximal medial col lateral ligament consistent with partial tear but without surrounding edema to suggest acute injury. The extensor mechanism is normal. The visualized medial and lateral hamstring tendons as well as the iliotibial band are normal. Fluid: Physiologic amount of fluid in the joint space. No loose osteochondral bodies identified. Osseous/other: Normal marrow signal. No fracture or pathologic marrow replacing process. Mild increased signal in th e superficial suprapatellar fat pad which can be seen with fat pad impingement syndrome. IMPRESSION: 1. Partial intrasubstance tear of the proximal medial collateral ligament without surrounding edema t o suggest acute injury most likely either subacute or chronic. 2. Edema in the superficial suprapatellar fat pad which can be seen with fat pad impingement syndrome . Reviewed, dictated and finalized at location A. IMPRESSION: 1. Partial intrasubstance tear of the proximal medial collateral ligament witho ut surrounding edema to suggest acute injury most likely either subacute or chr onic. 2. Edema in the superficial suprapatellar fat pad which can be seen with fat pa d impingement syndrome.
== END 2022-11-01 15:51 | disposition home or self-care (01) ==
LOC: ANHIMG 15:54
PROVIDERS: PCP Internal Medicine; Visit Provider Nurse Practitioner
DX: S83.411A Sprain of medial collateral ligament of right knee, initial encounter (principal); X58.XXXA Exposure to other specified factors, initial encounter
CPT/HCPCS: 73721

== ENCOUNTER 2024-04-08 22:48 | Emergency (ER) | payer SELFPAY ==
--- OUTSIDE RECORDS SUMMARY | 2024-04-08 22:51 | XMS_ITS | Referral Summary ---
Author Organization [facility] Address [address] [place] [address] Care Team Providers Care Photogrammetric Stereo Compiler Name Role Phone Durga Bryant MD Primary Care Provider [phone] Source Comments [facility],non-owned Affiliates and Associated Physician Practices is amultiple site organization consisting of ambulatory clinics and hospital sitesin [place], [place], [place] and [place]. This disclosure is being madepursuant to the Care Everywhere program and may not contain all information available regarding this patient. Last updated 17.[facility] Allergies No known active allergies Medications * Be aware that medications may not be up to date on this document. Alwaysverify current medications with the patient. Medication Sig Dispensed Refills Start Date End Date Status buPROPion (WELLBUTRIN) 100 MG tablet Take 100 mg by mouth 2 times daily Active lamoTRIgine (LAMICTAL) 200 MG tablet Take 200 mg by mouth 2 times daily Active Social History Tobacco Use Types Packs/Day Years Used Date Smoking Tobacco: Never Smokeless Tobacco: Never Alcohol Use Standard Drinks/Week Comments Yes 0 (1 standard drink = 0.6 oz pur e alcohol) Sex and Gender Information Value Date Recorded Sex Assigned at Not on file Gender Identity Not on file Sexual Orientation Not on file Last Filed Vital Signs Vital Sign Reading Time Taken Comments Blood Pressure 118/70 03/29/2019 2:59 PM [employer] Pulse 111 03/29/2019 2:59 PM [employer] Temperature 37.3 C (99.2 F) 03/29/2019 2:59 PM [employer] Respiratory Rate 16 03/29/2019 2:59 PM [employer] Oxygen Saturation 98% 03/29/2019 2:59 PM [employer] Inhaled Oxygen Concentration - - Weight 68 kg (150 lb) 03/29/2019 2:59 PM [employer] Height 177.8 cm (5' 10 ) 03/29/2019 2:59 PM [employer] Body Mass Index 21.52 03/29/2019 2:59 PM [employer] Plan of Treatment Not on file Care Teams Photogrammetric Stereo Compiler Relationship Specialty Start Date End Date Durga Bryant MD [address] [facility] [place] [address] PCP - General 01/02/18
--- OUTSIDE RECORDS SUMMARY | 2024-04-08 22:51 | XMS_ITS | Clinical Summary ---
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 reported, since discordance with absolute values may lead to misinterpretation of CBC data. Current Interpretive Data was last revised on 2017. Blood 02/04/2024 9:16 PM RACING SECRETARY 02/04/2024 9:31 PM RACING SECRETARY us Jody Garcia MD LAB BLOOD ORDERABLES Final Result [facility] Department [place] [address] * (ABNORMAL) CBC with auto differential (02/04/2024 9:16 PM RACING SECRETARY) WBC 5.2 3.8 - 9.9 K/cumm Hgb 12.9(L) 13.0 - 17.5 g/dL [facility] Hct 40.3 38.9 - 50.3 % [facility] Plt 528(H) 150 - 400 K/cumm [facility] MPV 8.9(L) 9.1 - 12.3 fL [facility] RBC 4.40 4.30 - 5.80 M/cumm [facility] MCV 91.6 81.3 - 96.4 fL [facility] MCH 29.3 27.1 - 33.3 pg [facility] MCHC 32.0(L) 32.3 - 35.7 g/dL [facility] RDW CV 15.2(H) 11.1 - 14.9 % [facility] RDW SD 51.0(H) 35.7 - 48.1 fL [facility] NRBC abs 0.00 0.00 - 0.01 K/cumm [facility] Blood 02/04/2024 9:16 PM RACING SECRETARY 02/04/2024 9:31 PM RACING SECRETARY Jody Garcia MD LAB BLOOD ORDERABLES Final Result Performing Organization Address [facility]/State/ZIP Co de Phone Number [facility] [place] [address] * Type and screen (02/04/2024 9:16 PM RACING SECRETARY) Pathologist [facility] [place], indirect Negative ABO Rh A Positive [facility] Blood 02/04/2024 9:16 PM RACING SECRETARY 02/04/2024 9:29 PM RACING SECRETARY Narrative [facility] - 02/04/2024 10:24 PM RACING SECRETARY Has the patient had Daratumumab or Isatuximab in the past 6 months?->Unknown Jody Garcia MD LAB BLOOD BANK TEST ORDERABLES Final Result [facility] [place] [address] * (ABNORMAL) Basic metabolic panel (02/04/2024 9:16 PM RACING SECRETARY) Sodium 143 135 - 145 mmol/L Potassium, pl 3.2(L) 3.3 - 4.9 mmol/L [facility] Chloride 104 97 - 110 mmol/L [facility] CO2 24 22 - 32 mmol/L [facility] Anion gap 15 2 - 15 mmol/L [facility] BUN 3(L) 6 - 25 mg/dL [facility] Creatinine 0.74(L) 0.80 - 1.30 mg/dL [facility] Glucose 108 70 - 199 mg/dL [facility] Comment: Interpretive Data Fasting glucose >/= 126 mg/dl is diagnostic for diabetes. Fasting is defined as no caloric intake for at least 8 hours. Fasting glucose between 100 mg/dl to 125 mg/dl is diagnostic of prediabetes. In a patient with classic symptoms of hyperglycemia or hyperglycemic crisis, a random glucose >/= 200 mg/dl is diagnostic for diabetes. In the absence of unequivocal hyperglycemia, results should be confirmed by repeat testing. The classification and Diagnosis of Diabetes Diabetes Care 2021; 46: S19-S40. Current interpretive data was last revised 2022. Calcium 9.0 8.5 - 10.3 mg/dL [facility] Blood 02/04/2024 9:16 PM RACING SECRETARY 02/04/2024 9:31 PM RACING SECRETARY us Jody Garcia MD LAB BLOOD ORDERABLES Final Result Performing Organization Address City/[facility]/ZIP Co de Phone Number [facility] [place] [address] from Last 3 Months Advance Directives For more information, please contact: [phone] * Full Code (Latest Code Status on File) Date Activated Date Inactivated Comments 02/05/2024 4:14 AM 02/06/2024 3:20 PM Care Teams Enterprise Application Architect Relationship Specialty Start Date End Date Rigoberto Najera DO PCP - General Internal Medicine 06/07/21
--- OUTSIDE RECORDS SUMMARY | 2024-04-08 22:51 | XMS_ITS | Patient Health Summary ---
Author Organization [facility] Address [address] [place] [address] Care Team Providers Care Taxi Proprietor Name Role Phone Durga Bryant MD Primary Care Provider [phone] Note from [facility],non-owned Affiliates and Associated Physician Practices is amultiple site organization consisting of ambulatory clinics and hospital sitesin [place], [place], [place] and [place]. This disclosure is being madepursuant to the Care Everywhere program and may not contain all information available regarding this patient. Last updated 17.[facility] Allergies No known active allergies Medications * Be aware that medications may not be up to date on this document. Alwaysverify current medications with the patient. * buPROPion (WELLBUTRIN) 100 MG tablet Take 100 mg by mouth 2 times daily * lamoTRIgine (LAMICTAL) 200 MG tablet Take 200 mg by mouth 2 times daily Social History Tobacco Use Types Packs/Day Years [...] Comments Blood Pressure 118/70 03/29/2019 2:59 PM [employer] TE[employer]ER Pulse 111 03/29/2019 2:59 PM [employer] TE[employer]ER Temperature 37.3 C (99.2 F) 03/29/2019 2:59 PM [employer] IND[employer]S TEACHER Respiratory Rate 16 03/29/2019 2:59 PM HIGH SCHO[employer] INDUSTRIAL ARTS TEACHER Oxygen Saturation 98% 03/29/2019 2:59 PM HIGH [employer] IND[employer]AL ARTS TEACHER Inhaled Oxygen Concentration - - Weight 68 kg (150 lb) 03/29/2019 2:59 PM H[employer] INDUSTRIAL ARTS TEACHER Height 177.8 cm (5' 10 ) 03/29/2019 2:59 PM H[employer] IND[employer]S TEACHER Body Mass Index 21.52 03/29/2019 2:59 PM HIGH [employer] INDUSTRIAL ARTS TEACHER Procedures * INFLUENZA A+B - POINT OF CARE (AMB)(Performed 03/29/2019) Performed for Influenza B Results * (ABNORMAL) INFLUENZA A+B - POINT OF CARE (AMB) (03/29/2019) Influenza A Antigen Rapid Negative Negative Influenza B Antigen Rapid Positive(A) Negative Influenza Internal Control positive NEGATIVE - POSITIVE Influenza Lot Number [id number] Influenza Expiration Date 12/11/2020 Other NASOPHARYNGEAL SWAB / Unknown 03/29/2019 Marco Morrison AERIAL CROP DUSTER-SECURITIES CLERK LAB - POINT OF CARE ORDERABLES Care Teams Taxi Proprietor Relationship Specialty Start Date End Date Durga Bryant MD [address] [place] [address] PCP - General 01/02/18
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
--- OUTSIDE RECORDS SUMMARY | 2024-04-08 22:51 | XMS_ITS | Clinical Summary ---
Author Organization [email or web address] Address [address] [place] [address] Care Team Providers Care Crown Blocker Name Role Phone Durga Bryant MD Primary Care Provider [phone] [email or web address],non-owned Affiliates and Associated Physician Practices is amultiple site organization consisting of ambulatory clinics and hospital sitesin [place], [place], [place] and [place]. This disclosure is being madepursuant to the Care Everywhere program and may not contain all information available regarding this patient. Last updated 17.[email or web address] Allergies No known active allergies Medications * [...] Comments Blood Pressure 118/70 03/29/2019 2:59 PM RELATIONSHIP MANAGEMENT LEAD Pulse 111 03/29/2019 2:59 PM RELATIONSHIP MANAGEMENT LEAD Temperature 37.3 C (99.2 F) 03/29/2019 2:59 PM RELATIONSHIP MANAGEMENT LEAD Respiratory Rate 16 03/29/2019 2:59 PM RELATIONSHIP MANAGEMENT LEAD Oxygen Saturation 98% 03/29/2019 2:59 PM RELATIONSHIP MANAGEMENT LEAD Inhaled Oxygen Concentration - - Weight 68 kg (150 lb) 03/29/2019 2:59 PM RELATIONSHIP MANAGEMENT LEAD Height 177.8 cm (5' 10 ) 03/29/2019 2:59 PM RELATIONSHIP MANAGEMENT LEAD Body Mass Index 21.52 03/29/2019 2:59 PM RELATIONSHIP MANAGEMENT LEAD Plan of Treatment Health Maintenance Due Date Last Done Comments HIV SCREENING 2002 HEPATITIS C SCREENING 01/25/2005 DTAP/TDAP/TD VACCINES (1 - Tdap) 2006 HEPATITIS B VACCINE (1 of 3 - 19+ 3-dose series) 2006 COVID-19 VACCINE (1 - 2023-2 5 season) 2023 INFLUENZA VACCINE (#1) 2023 DEPRESSION SCREENING 02/28/2024 ZOSTER VACCINE (1 of 2) 2037 HIB VACCINE Aged Out No longer eligi ble based on patient's age to complete this topic HPV VACCINE Aged Out No longer eligi ble based on patient's age to complete this topic MENINGOCOCCAL (Group B) VACCINE Aged Out No longer eligible based on patient's age to complete this topic MENINGOCOCCAL VACCINE Aged Out No jama annabelle eligible based on patient's age to complete this topic PNEUMOCOCCAL VACCINE Aged Out No long er eligible based on patient's age to complete this topic Care Teams Crown Blocker Relationship Specialty Start Date End Date Durga Bryant MD [address] [place] [address] PCP - General 01/02/18
[2024-04-08 22:54] VITALS: BP 140/90; PULSE 112; RESP 18; TEMP 36.1; O2SAT 100
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
--- OUTSIDE RECORDS SUMMARY | 2024-04-09 06:47 | XMS_ITS | Clinical Summary ---
Author Organization [facility] Address [address] [place] [address] Care Team Providers Care Floral Clerk Name Role Phone Durga Bryant MD Primary Care Provider [phone] Source Comments [facility],non-owned Affiliates and Associated Physician Practices is amultiple site organization consisting of ambulatory clinics and hospital sitesin [place], [place], [place] and [place]. This disclosure is being madepursuant to the Care Everywhere program and may not contain all information available regarding this patient. Last updated 17.[facility] Allergies No known active allergies Medications * [...] Comments Blood Pressure 118/70 03/29/2019 2:59 PM [employer] LIAISON OFFICER Pulse 111 03/29/2019 2:59 PM [employer] LIAISON OFFICER Temperature 37.3 C (99.2 F) 03/29/2019 2:59 PM [employer] LIAISON OFFICER Respiratory Rate 16 03/29/2019 2:59 PM [employer] LIAISON OFFICER Oxygen Saturation 98% 03/29/2019 2:59 PM [employer] LIAISON OFFICER Inhaled Oxygen Concentration - - Weight 68 kg (150 lb) 03/29/2019 2:59 PM [employer] LIAISON OFFICER Height 177.8 cm (5' 10 ) 03/29/2019 2:59 PM [employer] LIAISON OFFICER Body Mass Index 21.52 03/29/2019 2:59 PM [employer] LIAISON OFFICER Plan of Treatment Health Maintenance Due Date [...] age to complete this topic Care Teams Floral Clerk Relationship Specialty Start Date End Date Durga Bryant MD [address] [place] [address] PCP - General 01/02/18
--- OUTSIDE RECORDS SUMMARY | 2024-04-09 06:47 | XMS_ITS | Referral Summary ---
Author Organization [facility] Address [address] [place] [address] Care Team Providers Care Oil Operator Name Role Phone uDrga Bryant MD Primary Care Provider Source Comments [facility],non-owned Affiliates and Associated Physician Practices is amultiple site organization consisting of ambulatory clinics and hospital sitesin [place], [place], [place] and [place]. This disclosure is being madepursuant to the Care Everywhere program and may not contain all information available regarding this patient. Last updated 17.[facility] Allergies No known active allergies Medications * [...] Comments Blood Pressure 118/70 03/29/2019 2:59 PM MINE PATROL Pulse 111 03/29/2019 2:59 PM MINE PATROL Temperature 37.3 C (99.2 F) 03/29/2019 2:59 PM MINE PATROL Respiratory Rate 16 03/29/2019 2:59 PM MINE PATROL Oxygen Saturation 98% 03/29/2019 2:59 PM MINE PATROL Inhaled Oxygen Concentration - - Weight 68 kg (150 lb) 03/29/2019 2:59 PM MINE PATROL Height 177.8 cm (5' 10 ) 03/29/2019 2:59 PM MINE PATROL Body Mass Index 21.52 03/29/2019 2:59 PM MINE PATROL Plan of Treatment Not on file Care Teams Oil Operator Relationship Specialty Start Date End Date Durga Bryant MD [address] [facility] [address] PCP - General 01/02/18
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
--- OUTSIDE RECORDS SUMMARY | 2024-04-09 06:47 | XMS_ITS | Patient Health Summary ---
Author Organization [facility] Address [address] [place] [address] Care Team Providers Care Bottom Saw Operator Name Role Phone Durga Bryant MD Primary Care Provider [phone] Note from [facility],non-owned Affiliates and Associated Physician Practices is amultiple site organization consisting of ambulatory clinics and hospital sitesin [place], [place], [place] and [place]. This disclosure is being madepursuant to the Care Everywhere program and may not contain all information available regarding this patient. Last updated 17.[facility] Allergies No known active allergies Medications * [...] Comments Blood Pressure 118/70 03/29/2019 2:59 PM INFORMATION ASSURANCE ANALYST Pulse 111 03/29/2019 2:59 PM INFORMATION ASSURANCE ANALYST Temperature 37.3 C (99.2 F) 03/29/2019 2:59 PM INFORMATION ASSURANCE ANALYST Respiratory Rate 16 03/29/2019 2:59 PM INFORMATION ASSURANCE ANALYST Oxygen Saturation 98% 03/29/2019 2:59 PM INFORMATION ASSURANCE ANALYST Inhaled Oxygen Concentration - - Weight 68 kg (150 lb) 03/29/2019 2:59 PM INFORMATION ASSURANCE ANALYST Height 177.8 cm (5' 10 ) 03/29/2019 2:59 PM INFORMATION ASSURANCE ANALYST Body Mass Index 21.52 03/29/2019 2:59 PM INFORMATION ASSURANCE ANALYST Procedures * INFLUENZA A+B - POINT OF CARE (AMB)(Performed 03/29/2019) Performed for Influenza B Results * (ABNORMAL) INFLUENZA A+B - POINT OF CARE (AMB) (03/29/2019) Influenza A Antigen Rapid Negative Negative Influenza B Antigen Rapid Positive(A) Negative Influenza Internal Control positive NEGATIVE - POSITIVE Influenza Lot Number [id number] Influenza Expiration Date 12/11/2020 Other NASOPHARYNGEAL SWAB / Unknown 03/29/2019 Marco Morrison DRESSMAKER [employer] [facility] - POINT OF CARE ORDERABLES Care Teams Bottom Saw Operator Relationship Specialty Start Date End Date Durga Bryant MD [address] [place] [address] PCP - General 01/02/18
== END 2024-04-09 06:52 | disposition left against medical advice (07) ==
PROVIDERS: PCP Internal Medicine
DX: F10.129 Alcohol abuse with intoxication, unspecified (principal)
CPT/HCPCS: 99199

== ENCOUNTER 2024-04-09 11:19 | Emergency (ER) | payer SELFPAY ==
[2024-04-09] VITALS (8 sets, daily range): BP systolic 116–154; BP diastolic 78–107; PULSE 84–118; RESP 13–19; TEMP 36.4; O2SAT 97–99
[2024-04-09 12:10] LABS: Ammonia < 9 umol/L (9-30)
[2024-04-09 12:21] LABS: Basophils Percent Auto 0.4 % (0.2-1.2); Hematocrit 44.4 % (42.0-52.0); Hemoglobin 14.5 g/dL (14.0-18.0); Immature Granulocyte Absolute 0.04 K/mm3 (0.00-0.031); Immature Granulocyte Percent A 0.5 % (0-0.5); Lymphocytes Absolute Auto 1.26 K/mm3 (0.9-3.2); Lymphocytes Percent Auto 16.7 % (18.3-44.2); Mean Corpuscular HGB Conc 32.7 g/dl (32-36); Mean Corpuscular Hemoglobin 29.7 pg (26-34); Mean Corpuscular Volume 90.8 fl (80-100); Mean Platelet Volume 9.1 fl (7.4-10.4); Monocytes Percent Auto 13.3 % (2.6-8.5); Neutrophils Absolute Auto 5.2 K/mm3 (1.3-6.7); Neutrophils Percent Auto 69.1 % (45.5-73.1); Platelet Count Result 350 k/mm3 (150-375); Red Blood Count 4.89 M/mm3 (4.6-6.20); Red Cell Distribution Width 16.1 % (11.5-14.5); White Blood Count 7.5 K/mm3 (4.5-10.0)
[2024-04-09 12:22] LABS: Ethanol 452 mg/dL (<10)
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
[2024-04-09] MEDS: LACTATED RINGERS 1,000 ML 999 ML IV CONT ×2 (12:42→14:59)
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
--- OUTSIDE RECORDS SUMMARY | 2024-04-09 12:47 | XMS_ITS | Patient Health Summary ---
Author Organization [facility] [employer] Address [address] [place] [address] Care Team Providers Care Special Education Tutor Name Role Phone Durga Bryant MD Primary Care Provider [phone] Note from [facility],non-owned Affiliates and Associated Physician Practices is amultiple site organization consisting of ambulatory clinics and hospital sitesin [place], [place] and [place]. This disclosure is being madepursuant to the Care Everywhere program and may not contain all information available regarding this patient. Last updated 17.[facility] [employer] Allergies No known active allergies Medications * [...] Comments Blood Pressure 118/70 03/29/2019 2:59 PM STOVE MOUNTER Pulse 111 03/29/2019 2:59 PM STOVE MOUNTER Temperature 37.3 C (99.2 F) 03/29/2019 2:59 PM STOVE MOUNTER Respiratory Rate 16 03/29/2019 2:59 PM STOVE MOUNTER Oxygen Saturation 98% 03/29/2019 2:59 PM STOVE MOUNTER Inhaled Oxygen Concentration - - Weight 68 kg (150 lb) 03/29/2019 2:59 PM STOVE MOUNTER Height 177.8 cm (5' 10 ) 03/29/2019 2:59 PM STOVE MOUNTER Body Mass Index 21.52 03/29/2019 2:59 PM STOVE MOUNTER Procedures * INFLUENZA A+B - POINT OF CARE (AMB)(Performed 03/29/2019) Performed for Influenza B Results * (ABNORMAL) INFLUENZA A+B - POINT OF CARE (AMB) (03/29/2019) Influenza A Antigen Rapid Negative Negative Influenza B Antigen Rapid Positive(A) Negative Influenza Internal Control positive NEGATIVE - POSITIVE Influenza Lot Number [id number] Influenza Expiration Date 12/11/2020 Other NASOPHARYNGEAL SWAB / Unknown 03/29/2019 Marco Morrison DRUG ROOM CLERK-LIDAR TECHNICIAN LAB - POINT OF CARE ORDERABLES Care Teams Special Education Tutor Relationship Specialty Start Date End Date Durga Bryant MD [address] [place] [address] PCP - General 01/02/18
--- OUTSIDE RECORDS SUMMARY | 2024-04-09 12:47 | XMS_ITS | Referral Summary ---
Author Organization [facility] [employer] Address [address] [place] [address] Care Team Providers Care Knotting Machine Operator Name Role Phone Durga Bryant MD Primary Care Provider Source Comments [facility] [employer],non-owned Affiliates and Associated Physician Practices is amultiple site organization consisting of ambulatory clinics and hospital sitesin [place], [place], [place] and [place]. This disclosure is being madepursuant to the Care Everywhere program and may not contain all information available regarding this patient. Last updated 17.[facility] [employer] Allergies No known active allergies Medications * [...] Comments Blood Pressure 118/70 03/29/2019 2:59 PM CLIENT SOLUTIONS SPECIALIST Pulse 111 03/29/2019 2:59 PM CLIENT SOLUTIONS SPECIALIST Temperature 37.3 C (99.2 F) 03/29/2019 2:59 PM CLIENT SOLUTIONS SPECIALIST Respiratory Rate 16 03/29/2019 2:59 PM CLIENT SOLUTIONS SPECIALIST Oxygen Saturation 98% 03/29/2019 2:59 PM CLIENT SOLUTIONS SPECIALIST Inhaled Oxygen Concentration - - Weight 68 kg (150 lb) 03/29/2019 2:59 PM CLIENT SOLUTIONS SPECIALIST Height 177.8 cm (5' 10 ) 03/29/2019 2:59 PM CLIENT SOLUTIONS SPECIALIST Body Mass Index 21.52 03/29/2019 2:59 PM CLIENT SOLUTIONS SPECIALIST Plan of Treatment Not on file Care Teams Knotting Machine Operator Relationship Specialty Start Date End Date uDrga Bryant MD [address] [place] [address] PCP - General 01/02/18
--- OUTSIDE RECORDS SUMMARY | 2024-04-09 12:47 | XMS_ITS | Clinical Summary ---
Author Organization [facility] [employer] Address [address] [facility] [place] [address] Care Team Providers Care Wool Brusher Name Role Phone Durga Bryant MD Primary Care Provider [phone] Source Comments [facility] [employer],non-owned Affiliates and Associated Physician Practices is amultiple site organization consisting of ambulatory clinics and hospital sitesin [place], [place] and [place]. This disclosure is being madepursuant to the Care Everywhere program and may not contain all information available regarding this patient. Last updated 17.[facility] [employer] Allergies No known active allergies Medications * [...] Comments Blood Pressure 118/70 03/29/2019 2:59 PM QUALITY CONTROL DIRECTOR Pulse 111 03/29/2019 2:59 PM QUALITY CONTROL DIRECTOR Temperature 37.3 C (99.2 F) 03/29/2019 2:59 PM QUALITY CONTROL DIRECTOR Respiratory Rate 16 03/29/2019 2:59 PM QUALITY CONTROL DIRECTOR Oxygen Saturation 98% 03/29/2019 2:59 PM QUALITY CONTROL DIRECTOR Inhaled Oxygen Concentration - - Weight 68 kg (150 lb) 03/29/2019 2:59 PM QUALITY CONTROL DIRECTOR Height 177.8 cm (5' 10 ) 03/29/2019 2:59 PM QUALITY CONTROL DIRECTOR Body Mass Index 21.52 03/29/2019 2:59 PM QUALITY CONTROL DIRECTOR Plan of Treatment Health Maintenance Due Date [...] age to complete this topic Care Teams Wool Brusher Relationship Specialty Start Date End Date Durga Bryant MD [address] [place] [address] PCP - General 01/02/18
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
--- NOTE | 2024-04-09 13:10 | PC.NURSE ---
Pt removed IV, tip intact.
[2024-04-09 14:16] LABS: Add Urine Microscopic? YES; Appearance Urine Clear (Clear); Bacteria Urine None Seen /hpf; Bilirubin Urine Negative (Negative); Blood Urine Negative (Negative); Color Urine Yellow (Yellow); Glucose Urine UA Negative (Negative); Ketones Urine Negative (Negative); Leukocyte Esterase Ur Negative LEU/UL (Negative); Nitrate Urine Negative (Negative); Protein Urine Trace mg/dL (Negative); RBC Urine 0-2 /hpf (0-2); Specific Grav Ur 1.012 (1.001-1.035); Squamous Epithelial Cell Urine None Seen /hpf (Few); Urobilinogen Urine 0.2 mg/dL (<2.0); WBC Urine 0-5 /hpf (0-3); pH Urine 5.5 (5.0-9.0)
[2024-04-09 14:23] LABS: Alanine Aminotransferase 22 U/L (6-50); Alkaline Phosphatase 128 U/L (38-126); Anion Gap 17 mmol/L (4-12); Aspartate Amino Transferase 53 U/L (17-59); Bilirubin,Total 0.4 mg/dL (0.2-1.3); Blood Urea Nitrogen 4 mg/dL (9-20); Calcium 8.6 mg/dL (8.4-10.2); Carbon Dioxide 28 mmol/L (22-30); Chloride 102 mmol/L (98-107); Estimated CRCL calculation 170 ml/min; Estimated Glomerular Filt Rate > 60; Glucose 105 mg/dL (65-110); Potassium 3.3 mmol/L (3.4-5.0); Sodium 147 mmol/L (137-145)
[2024-04-09 15:13] LABS: Amphetamine Screen Urine Negative (Negative); Barbiturate Screen Urine Negative (Negative); Benzodiazepines Screen Urine Negative (Negative); Cannabinoid Screen Urine Negative (Negative); Cocaine Screen Urine Negative (Negative); Methadone Screen Urine Negative (Negative); Opiate Screen Urine Negative (Negative); Phencyclidine Screen Urine Negative (Negative)
== END 2024-04-09 23:08 | disposition home or self-care (01) ==
PROVIDERS: Emergency Medicine; Emergency Provider Student in an Organized Health Care Education/Training Program; PCP Internal Medicine
DX: F10.129 Alcohol abuse with intoxication, unspecified (principal); Y90.8 Blood alcohol level of 240 mg/100 ml or more; M10.9 Gout, unspecified; D64.9 Anemia, unspecified; E78.5 Hyperlipidemia, unspecified; Z87.442 Personal history of urinary calculi
CPT/HCPCS: 36415; 80053; 80307; 81001; 82077; 82140; 85025; 96360; 96361; 99284; J7120

== ENCOUNTER 2024-04-10 09:26 | Emergency (ER) | payer SELFPAY ==
[2024-04-10 09:32] VITALS: BP 129/97; PULSE 106; RESP 20; TEMP 36.6; O2SAT 98
[2024-04-10 10:08] LABS: Basophils Percent Auto 0.4 % (0.2-1.2); Hematocrit 40.4 % (42.0-52.0); Hemoglobin 13.3 g/dL (14.0-18.0); Immature Granulocyte Absolute 0.02 K/mm3 (0.00-0.031); Immature Granulocyte Percent A 0.3 % (0-0.5); Lymphocytes Absolute Auto 1.12 K/mm3 (0.9-3.2); Lymphocytes Percent Auto 14.8 % (18.3-44.2); Mean Corpuscular HGB Conc 32.9 g/dl (32-36); Mean Corpuscular Hemoglobin 29.9 pg (26-34); Mean Corpuscular Volume 90.8 fl (80-100); Mean Platelet Volume 9.5 fl (7.4-10.4); Monocytes Absolute Auto 0.9 K/mm3 (0.1-0.6); Monocytes Percent Auto 12.4 % (2.6-8.5); Neutrophils Absolute Auto 5.5 K/mm3 (1.3-6.7); Neutrophils Percent Auto 72.1 % (45.5-73.1); Platelet Count Result 315 k/mm3 (150-375); Red Blood Count 4.45 M/mm3 (4.6-6.20); Red Cell Distribution Width 15.9 % (11.5-14.5); White Blood Count 7.6 K/mm3 (4.5-10.0)
--- NOTE | 2024-04-10 10:25 | ED_ITS ---
HPI - Alcohol General Chief Complaint: Alcohol Stated Complaint: SI, ETOH Time Seen by Provider: 04/10/24 09:29 Source: patient and old records reviewed Mode of arrival: EMS Limitations: no limitations and intoxication History of Present Illness HPI narrative: Patient is a 39-year-old male, with past medical history of alcohol use disorder, who presents the ED via EMS with report of depression. Patient reported feeling increasingly sad today and over the last 3 days. There was report of his mother dying this week and his girlfriend recently breaking up with him. Has had intermittent suicidal ideation in the past but patient states he does not have any active plan or intent to harm himself. Denies HI. Denies any previous attempts at self-harm. Has been drinking today. States he has drank at least 1 pt of liquor today. Patient was seen in the ED here yesterday for similar alcohol intoxication. Denied SI at that time. Patient denies any other complaints at this time. Related Data Home Medications ?Medication ?Instructions ?Recorded ?Confirmed ?Last Taken ?Type lamotrigine 200 mg tablet 200 mg PO DAILY 09/22/21 11/28/23 Unknown History atomoxetine 25 mg capsule 25 mg PO DAILY 10/14/22 11/28/23 Unknown History Allergies Allergy/AdvReac Type Severity Reaction Status Date / Time amoxicillin Allergy Intermediate ATRIAL FIB Verified 04/09/24 11:43 Review of Systems 2 Review of Systems: All systems reviewed & are unremarkable except as noted in HPI. All systems reviewed & are unremarkable except as noted in HPI and below PMFSH Past Medical History Medical History Carpal tunnel syndrome, left Left wrist fracture Gouty arthritis Family history of cardiovascular disease Elevated sed rate Anemia Transaminitis Hyperlipidemia Kidney stone Surgical History Surgical History Hx of tonsillectomy History of tonsillectomy Family History Family History Mother Depression Family history of osteoarthritis Seizure Heart disease Father Hypertension Family history of heart disease in male family member before age 55 Sibling Alcoholism Depression Anxiety Epilepsy Grandparent Breast cancer Heart disease Hypertension Alcoholism Social History Social History Social History: caffeine- occasionally Smoking status: Former smoker Additional smoking assessment comments: smoked from age [age] Alcohol intake: current Alcohol use details: occasionally Lack of Transportation: No Lack of Food: Sometimes True Current Housing: I Have Housing Concerned About Future Housing: No Difficulty Paying Gas/Electric Bills: No Difficulty Paying for Meds: No Currently Unemployed: YES Education: High School Diploma/GED Difficulty w/ Childcare or Family Care: No Occupation/Education: occupation Additional occupation/education comments: [employer] Gender identity (if verbalized by the patient): Male Exam 2 Narrative: GENERAL: Appears intoxicated, slightly disheveled. Well-nourished, non-toxic, in no acute distress. HEAD: Normocephalic, atraumatic. RESPIRATORY: Airway patent, respirations nonlabored. Clear to auscultation bilaterally, no rales, rhonchi, wheezing. CARDIOVASCULAR: Borderline tachycardia with regular rhythm without murmurs, rubs, or gallops. MUSCULOSKELETAL: Moves all extremities. No gross deformities. SKIN: Warm, dry, normal color. NEURO: A&O X3. Speech is somewhat slow but clear. Cranial nerves II-XII grossly intact. Steady gait. No ataxic movements. No focal deficits. PSYCHIATRIC: Normal interaction. Course Vital Signs Vital signs: Vital Signs Temperature 97.8 F 04/10/24 09:32 Pulse Rate 106 H 04/10/24 09:32 Respiratory Rate 20 04/10/24 09:32 Blood Pressure 129/97 H 04/10/24 09:32 Pulse Oximetry 98 04/10/24 09:32 Oxygen Delivery Room Air 04/10/24 09:32 Temperature 97.8 F 04/10/24 09:32 Pulse Rate 108 H 04/10/24 18:10 Respiratory Rate 16 04/10/24 18:10 Blood Pressure 147/100 H 04/10/24 18:10 Pulse Oximetry 99 04/10/24 18:10 Oxygen Delivery Room Air 04/10/24 09:32 MDM - Alcohol MDM Narrative Medical decision making narrative: Patient presented to ED with alcohol intoxication, depression over recent events. No current SI/HI. Vital signs are stable upon arrival. ED psych workup was initiated. Laboratory studies notable for sodium 146. Potassium 2.8. Anion gap of 18. Fluids initiated. Oral and IV potassium ordered. Magnesium within normal range. Alcohol level is elevated to 397. Will need clinical sobriety before crisis evaluation. Reassessed patient at 1845 (approx 9 hours after initial eval). He is sitting up on the side of the bed stating he would like to leave the facility. He is clinically sober at this time. I have observed him ambulating with a steady gait. He is alert oriented x4, able to have clear coherent conversation. States he has a sober friend that will come to get him. He would like to leave. Does not wany any further w/u. Denies any suicidal or homicidal ideation. Denies ever having any plan or intent to harm himself or anyone else. He is not exhibiting any evidence of significant alcohol withdrawal at this time. He is wanting to quit drinking and has a plan to get into [facility] for this. He was given additional resources for alcohol treatment programs/detox. Feel comfortable with patient to d/c with sober ride at this time. Given strict return precautions. D/C in stable condition. Medical Records Attestation: I reviewed the patient's medical records. Lab Data Attestation: I reviewed the patient's lab results. 04/10/24 10:02 04/10/24 10:02 Labs: Lab Results 04/10/24 04/10/24 Range/Units 10:02 11:35 WBC 7.6 (4.5-10.0) K/mm3 RBC 4.45 L (4.6-6.20) M/mm3 Hgb 13.3 L (14.0-18.0) g/dL Hct 40.4 L (42.0-52.0) % MCV 90.8 (80-100) fl MCH 29.9 (26-34) pg MCHC 32.9 (32-36) g/dl RDW 15.9 H (11.5-14.5) % Plt Count 315 (150-375) k/mm3 MPV 9.5 (7.4-10.4) fl Immature Gran % (Auto) 0.3 (0-0.5) % Neut % (Auto) 72.1 (45.5-73.1) % Lymph % (Auto) 14.8 L (18.3-44.2) % [place] % (Auto) 12.4 H (2.6-8.5) % Eos % (Auto) 0.0 (0-4.4) % Baso % (Auto) 0.4 (0.2-1.2) % Lymph # (Auto) 1.12 (0.9-3.2) K/mm3 [place] # (Auto) 0.9 H (0.1-0.6) K/mm3 Eos # (Auto) 0.0 (0-0.3) K/mm3 Baso # (Auto) 0.0 (0.0-0.1) K/mm3 Abs Immat Gran (auto) 0.02 (0.00-0.031) K/mm3 Absolute Neuts (auto) 5.5 (1.3-6.7) K/mm3 Absolute Nucleated RBC 0.000 (0.0-0.012) K/mm3 Nucleated RBC % 0.0 (0.0-0.2) % Sodium 146 H (137-145) mmol/L Potassium 2.8 L* (3.4-5.0) mmol/L Chloride 104 (98-107) mmol/L Carbon Dioxide 24 (22-30) mmol/L Anion Gap 18 H (4-12) mmol/L BUN 2 L (9-20) mg/dL Creatinine 0.47 L (0.7-1.3) mg/dL Estim Creat Clear Calc Not Reportable Estimated GFR > 60 (59 - ) Glucose 115 H (65-110) mg/dL Calcium 8.5 (8.4-10.2) mg/dL Magnesium 2.0 (1.6-2.3) mg/dL Total Bilirubin 0.7 (0.2-1.3) mg/dL AST 63 H (17-59) U/L ALT 25 (6-50) U/L Alkaline Phosphatase 125 (38-126) U/L Total Protein 7.0 (6.3-8.2) g/dL Albumin 3.7 (3.5-5.1) g/dL TSH 1.500 (0.465-4.680) uIU/mL Salicylates < 1.0 L (2-20) mg/dL Urine Opiates Screen Negative (Negative) Urine Methadone Screen Negative (Negative) Acetaminophen < 10 L (10-30) ug/mL Ur Barbiturates Screen Negative (Negative) Ur Phencyclidine Scrn Negative (Negative) Ur Amphetamine Screen Negative (Negative) U Benzodiazepines Scrn Negative (Negative) Urine Cocaine Screen Negative (Negative) U Cannabinoids Screen Negative (Negative) Ethyl Alcohol 397 H* (<10) mg/dL Influenza A (RT-PCR) Negative (Negative) Influenza B (RT-PCR) Negative (Negative) RSV (RT-PCR) Negative (Negative) SARS-CoV-2 RNA (RT-PCR) Negative (Negative) Discharge Plan Discharge Clinical Impression: Alcohol abuse with intoxication Depression Qualifiers: Depression Type: unspecified Qualified Code(s): F32.A - Depression, unspecified Patient Disposition: Home, Self-Care Condition: Stable Instructions: Antibiotic Form, Alcohol Intoxication (ED), Alcohol Withdrawal (ED) Additional Instructions: Utilize resources given to for alcohol treatment programs and detox. Return to the ED if you experience new or worsening concerns, worsening depression, thoughts of wanting to harm herself or anyone else, or any other symptoms of concern. Patient Language: Qatari Prescriptions: No Action ondansetron 4 mg tablet,disintegrating 4 mg PO Q8H PRN (Reason: nausea and vomiting) Qty: 10 0RF diclofenac sodium [Voltaren Arthritis Pain] 1 % gel 4 g topical QID Qty: 100 1RF Rx Instructions: apply to single knee, ankle, foot; for foot includes sole/toes/top of foot lamotrigine 200 mg tablet 200 mg PO DAILY atomoxetine 25 mg capsule 25 mg PO DAILY sertraline 100 mg tablet 100 mg PO DAILY Qty: 90 1RF allopurinol 100 mg tablet 200 mg PO DAILY Qty: 180 0RF colchicine 0.6 mg tablet 0.6 mg PO BID Qty: 60 0RF Follow-up/Referrals: Rigoberto Najera DO [Primary Care Provider] - Time of Disposition: 18:48
[2024-04-10 10:29] LABS: Acetaminophen < 10 ug/mL (10-30); Salicylate < 1.0 mg/dL (2-20)
[2024-04-10 10:30] LABS: Alanine Aminotransferase 25 U/L (6-50); Albumin Level 3.7 g/dL (3.5-5.1); Alkaline Phosphatase 125 U/L (38-126); Anion Gap 18 mmol/L (4-12); Aspartate Amino Transferase 63 U/L (17-59); Bilirubin,Total 0.7 mg/dL (0.2-1.3); Blood Urea Nitrogen 2 mg/dL (9-20); Calcium 8.5 mg/dL (8.4-10.2); Carbon Dioxide 24 mmol/L (22-30); Chloride 104 mmol/L (98-107); Estimated Glomerular Filt Rate > 60; Glucose 115 mg/dL (65-110); Potassium 2.8 mmol/L (3.4-5.0); Sodium 146 mmol/L (137-145)
[2024-04-10 10:44] LABS: Influenza A QL RT-PCR Negative (Negative); Influenza B QL RT-PCR Negative (Negative); RSV RNA, RT-PCR Negative (Negative); SARS-CoV-2 RNA PCR Negative (Negative)
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
--- OUTSIDE RECORDS SUMMARY | 2024-04-10 10:46 | XMS_ITS | Referral Summary ---
Author Organization [facility] Address [address] [place] [address] Care Team Providers Care Sample Collector Name Role Phone Durga Bryant MD Primary Care Provider [phone] Source Comments [facility],non-owned Affiliates and Associated Physician Practices is amultiple site organization consisting of ambulatory clinics and hospital sitesin [place], [place], [place] and [place]. This disclosure is being madepursuant to the Care Everywhere program and may not contain all information available regarding this patient. Last updated 17.[facility] Allergies No known active allergies Medications * [...] Comments Blood Pressure 118/70 03/29/2019 2:59 PM MEAT STOCKER Pulse 111 03/29/2019 2:59 PM MEAT STOCKER Temperature 37.3 C (99.2 F) 03/29/2019 2:59 PM MEAT STOCKER Respiratory Rate 16 03/29/2019 2:59 PM MEAT STOCKER Oxygen Saturation 98% 03/29/2019 2:59 PM MEAT STOCKER Inhaled Oxygen Concentration - - Weight 68 kg (150 lb) 03/29/2019 2:59 PM MEAT STOCKER Height 177.8 cm (5' 10 ) 03/29/2019 2:59 PM MEAT STOCKER Body Mass Index 21.52 03/29/2019 2:59 PM MEAT STOCKER Plan of Treatment Not on file Care Teams Sample Collector Relationship Specialty Start Date End Date Durga Bryant MD [address] [facility] [place] [address] PCP - General 01/02/18
--- OUTSIDE RECORDS SUMMARY | 2024-04-10 10:46 | XMS_ITS | Patient Health Summary ---
Author Organization [facility] [employer] Address [address] [place] [address] Care Team Providers Care Aml Analyst Name Role Phone Durga Bryant MD Primary Care Provider [phone] Note from [facility],non-owned Affiliates and Associated Physician Practices is amultiple site organization consisting of ambulatory clinics and hospital sitesin [place], [place], [place] and [place]. This disclosure is being madepursuant to the Care Everywhere program and may not contain all information available regarding this patient. Last updated 17.[facility] Allergies No known active allergies Medications * [...] Comments Blood Pressure 118/70 03/29/2019 2:59 PM SUSTAINABLE SYSTEMS ANALYST Pulse 111 03/29/2019 2:59 PM SUSTAINABLE SYSTEMS ANALYST Temperature 37.3 C (99.2 F) 03/29/2019 2:59 PM SUSTAINABLE SYSTEMS ANALYST Respiratory Rate 16 03/29/2019 2:59 PM SUSTAINABLE SYSTEMS ANALYST Oxygen Saturation 98% 03/29/2019 2:59 PM SUSTAINABLE SYSTEMS ANALYST Inhaled Oxygen Concentration - - Weight 68 kg (150 lb) 03/29/2019 2:59 PM SUSTAINABLE SYSTEMS ANALYST Height 177.8 cm (5' 10 ) 03/29/2019 2:59 PM SUSTAINABLE SYSTEMS ANALYST Body Mass Index 21.52 03/29/2019 2:59 PM SUSTAINABLE SYSTEMS ANALYST Procedures * INFLUENZA A+B - POINT OF CARE (AMB)(Performed 03/29/2019) Performed for Influenza B Results * (ABNORMAL) INFLUENZA A+B - POINT OF CARE (AMB) (03/29/2019) Influenza A Antigen Rapid Negative Negative Influenza B Antigen Rapid Positive(A) Negative Influenza Internal Control positive NEGATIVE - POSITIVE Influenza Lot Number [id number] Influenza Expiration Date 12/11/2020 Other NASOPHARYNGEAL SWAB / Unknown 03/29/2019 Marco Morrison BILINGUAL SALES REPRESENTATIVE-SUPERVISOR [facility] - POINT OF CARE ORDERABLES Care Teams Aml Analyst Relationship Specialty Start Date End Date Durga Bryant MD [address] [place] [address] PCP - General 01/02/18
--- OUTSIDE RECORDS SUMMARY | 2024-04-10 10:46 | XMS_ITS | Clinical Summary ---
Author Organization [facility] [employer] Address [address] [place] [address] Care Team Providers Care Plasticator Name Role Phone Durga Bryant MD Primary Care Provider [phone] Source Comments [facility] [employer],non-owned Affiliates and Associated Physician Practices is amultiple site organization consisting of ambulatory clinics and hospital sitesin [place], [place], [place] and [place]. This disclosure is being madepursuant to the Care Everywhere program and may not contain all information available regarding this patient. Last updated 17.[facility] Allergies No known active allergies Medications * [...] Comments Blood Pressure 118/70 03/29/2019 2:59 PM HEATING REPAIR TECHNICIAN Pulse 111 03/29/2019 2:59 PM HEATING REPAIR TECHNICIAN Temperature 37.3 C (99.2 F) 03/29/2019 2:59 PM HEATING REPAIR TECHNICIAN Respiratory Rate 16 03/29/2019 2:59 PM HEATING REPAIR TECHNICIAN Oxygen Saturation 98% 03/29/2019 2:59 PM HEATING REPAIR TECHNICIAN Inhaled Oxygen Concentration - - Weight 68 kg (150 lb) 03/29/2019 2:59 PM HEATING REPAIR TECHNICIAN Height 177.8 cm (5' 10 ) 03/29/2019 2:59 PM HEATING REPAIR TECHNICIAN Body Mass Index 21.52 03/29/2019 2:59 PM HEATING REPAIR TECHNICIAN Plan of Treatment Health Maintenance Due Date [...] age to complete this topic Care Teams Plasticator Relationship Specialty Start Date End Date Durga Bryant MD [address] [place] [address] PCP - General 01/02/18
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
[2024-04-10 10:48] LABS: Ethanol 397 mg/dL (<10)
[2024-04-10] MEDS: THIAMINE HCL 200 MG/2 ML VIAL 100 MG IV PUSH (10:51)
[2024-04-10] MEDS: SODIUM CHLORIDE 0.9% IV 1,000 ML 999 ML IV CONT (10:51)
[2024-04-10] MEDS: POTASSIUM CHLORIDE 20 MEQ ER TABLET 40 MEQ PO ×2 (10:51→18:56)
--- NOTE | 2024-04-10 10:55 | PC.NURSE ---
Seizure pads and fall alarm placed on patient's bed due to being intoxicated for safety. Patient resting at this time. Light turned off
[2024-04-10] MEDS: POTASSIUM CHLORIDE INJ 40 MEQ in SODIUM CHLORIDE 0.9% IV 500 ML 130 MEQ IVPB (11:23)
[2024-04-10 11:55] VITALS: BP 118/89; PULSE 93; RESP 16; O2SAT 96
[2024-04-10 11:57] LABS: Amphetamine Screen Urine Negative (Negative); Barbiturate Screen Urine Negative (Negative); Benzodiazepines Screen Urine Negative (Negative); Cannabinoid Screen Urine Negative (Negative); Cocaine Screen Urine Negative (Negative); Methadone Screen Urine Negative (Negative); Opiate Screen Urine Negative (Negative); Phencyclidine Screen Urine Negative (Negative)
[2024-04-10 13:03] VITALS: BP 115/88; PULSE 109; RESP 16
[2024-04-10 14:30] VITALS: BP 107/78; PULSE 85; RESP 16; O2SAT 92
[2024-04-10 15:30] VITALS: BP 119/95; PULSE 99; RESP 14; O2SAT 96
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
[2024-04-10 18:10] VITALS: BP 147/100; PULSE 108; RESP 16; O2SAT 99
== END 2024-04-10 19:16 | disposition home or self-care (01) ==
PROVIDERS: Emergency Provider Physician Assistant; PCP Internal Medicine
DX: F32.A Depression, unspecified (principal); F10.129 Alcohol abuse with intoxication, unspecified; Y90.8 Blood alcohol level of 240 mg/100 ml or more; Z11.52 Encounter for screening for COVID-19; E78.5 Hyperlipidemia, unspecified; M10.9 Gout, unspecified; Z87.442 Personal history of urinary calculi; Z86.2 Personal history of diseases of the blood and blood-forming organs and certain disorders involving the immune mechanism; Z87.891 Personal history of nicotine dependence; Z79.899 Other long term (current) drug therapy
CPT/HCPCS: 36415; 80053; 80143; 80179; 80307; 82077; 83735; 84443; 85025; 87637; 96365; 96366; 96375; 99284; A9270; J3411; J3480; J7030; J7040

== ENCOUNTER 2024-05-06 17:53 | Emergency (ER) | payer SELFPAY ==
[2024-05-06 18:06] VITALS: BP 143/104; PULSE 116; RESP 20; TEMP 37.6; O2SAT 98
--- NOTE | 2024-05-06 18:45 | ED_ITS ---
HPI - General Adult General Chief complaint: Extremity Problem,Nontraumatic Stated complaint: GOUT Source: patient Mode of arrival: ambulatory Limitations: no limitations History of Present Illness HPI narrative: 39-year-old male presented for complaint of left knee redness, pain, swelling and warmth. Onset 5 days. States he has a history of gout and this feels similar. Endorses painful range of motion and difficulty walking. He is requesting colchicine. Says he has had gout in that knee before. Denies numbness, tingling, weakness or injury. Related Data Home Medications ?Medication ?Instructions ?Recorded ?Confirmed ?Last Taken ?Type lamotrigine 200 mg tablet 200 mg PO DAILY 09/22/21 05/06/24 Unknown History atomoxetine 25 mg capsule 25 mg PO DAILY 10/14/22 05/06/24 Unknown History Allergies Allergy/AdvReac Type Severity Reaction Status Date / Time amoxicillin Allergy Intermediate ATRIAL FIB Verified 05/06/24 18:06 Review of Systems Review of Systems: CONSTITUTIONAL: Denies body aches, fever, chills EYES: Denies visual changes ENT: Denies rhinorrhea, congestion CARDIOVASCULAR: Denies chest pain, palpitations, or edema. RESPIRATORY: Denies cough or dyspnea. GASTROINTESTINAL: Denies abdominal pain, nausea, vomiting, or diarrhea. SKIN: Denies rash, itching, or wounds. MUSCULOSKELETAL: per HPI NEUROLOGIC: Denies headache, numbness, tingling, or weakness. All systems reviewed & are unremarkable except as noted in HPI and below PMFSH Past Medical History Medical History Carpal tunnel syndrome, left Left wrist fracture Gouty arthritis Family history of cardiovascular disease Elevated sed rate Anemia Transaminitis Hyperlipidemia Kidney stone Surgical History Surgical History Hx of tonsillectomy History of tonsillectomy Family History Family History Mother Depression Family history of osteoarthritis Seizure Heart disease Father Hypertension Family history of heart disease in male family member before age 55 Sibling Alcoholism Depression Anxiety Epilepsy Grandparent Breast cancer Heart disease Hypertension Alcoholism Social History Social History Social History: caffeine- occasionally Smoking status: Former smoker Additional smoking assessment comments: smoked from age [age] Alcohol intake: current Alcohol use details: occasionally Lack of Transportation: No Lack of Food: Sometimes True Current Housing: I Have Housing Concerned About Future Housing: No Difficulty Paying Gas/Electric Bills: No Difficulty Paying for Meds: No Currently Unemployed: YES Education: High School Diploma/GED Difficulty w/ Childcare or Family Care: No Occupation/Education: occupation Additional occupation/education comments: [employer] Gender identity (if verbalized by the patient): Male Comments At time of signature, I have reviewed and agree with nursing past medical, surgical, social and family history unless otherwise noted. Please see nursing chart for further information. There is no relevant family history pertinent to the presenting complaint Exam Narrative: GENERAL: Well-appearing CHEST: Speaks in full sentences. No respiratory distress. HEART: Regular rate and rhythm. Normal and equal peripheral pulses. EXTREMITIES: left knee: Patient is able to bear weight and ambulate with pain reported to the left knee., Left knee proximal aspect with swelling, erythema, warmth and tenderness. Patient is able to tolerate full flexion, extension, but reports painful ROM. No tenderness to palpation of the patella, No tenderness over the infrapatellar tendon. No tenderness over the proximal fibular head. No quadriceps tenderness. Distal motor and neurovascular status intact. No bruising SKIN: Warm, dry NEURO: Alert and oriented x3. PSYCH: Normal mood and affect Course Course Emergency Course: Patient is aware of diagnosis, understands and agrees to treatment plan. Anticipatory guidance given. Patient agrees to follow-up as directed and is aware of reasons to seek care at the emergency department. Portions of this record may have been created with voice recognition software Level of Care: Express Care Visit Vital Signs Vital signs: Vital Signs Temperature 99.7 F H 05/06/24 18:06 Pulse Rate 116 H 05/06/24 18:06 Respiratory Rate 20 05/06/24 18:06 Blood Pressure 143/104 H 05/06/24 18:06 Pulse Oximetry 98 05/06/24 18:06 Oxygen Delivery Room Air 05/06/24 18:06 Temperature 99.7 F H 05/06/24 18:06 Pulse Rate 116 H 05/06/24 18:06 Respiratory Rate 20 05/06/24 18:06 Blood Pressure 143/104 H 05/06/24 18:06 Pulse Oximetry 98 05/06/24 18:06 Oxygen Delivery Room Air 05/06/24 18:06 Reviewed Medical Decision Making MDM Narrative Medical decision making narrative: Discussed physical exam findings including possible other etiologies including infection, patient is advised close monitoring and if no improvement after the colchicine to go to the emergency room. Advised supportive measures Pt is appropriate for outpt treatment and f/u. Differential Diagnosis Differential Diagnosis: osteoarthritis, patella dislocation, patellar tendonitis, tendon rupture, gout, bakers cyst, septic bursitis, dvt, tibial plateau fracture Vital Signs Vital Signs: Vital Signs Temperature 99.7 F H 05/06/24 18:06 Pulse Rate 116 H 05/06/24 18:06 Respiratory Rate 20 05/06/24 18:06 Blood Pressure 143/104 H 05/06/24 18:06 Pulse Oximetry 98 05/06/24 18:06 Oxygen Delivery Room Air 05/06/24 18:06 Temperature 99.7 F H 05/06/24 18:06 Pulse Rate 116 H 05/06/24 18:06 Respiratory Rate 20 05/06/24 18:06 Blood Pressure 143/104 H 05/06/24 18:06 Pulse Oximetry 98 05/06/24 18:06 Oxygen Delivery Room Air 05/06/24 18:06 Discharge Plan Discharge Clinical Impression: Pain and swelling of left knee Patient Disposition: Home, Self-Care Condition: Stable Instructions: Antibiotic Form, Gout (ED), Swollen Knee Joint (ED) Additional Instructions: Gout is a form of inflammatory?arthritis that causes pain and swelling in your joints. A buildup of excess uric acid in your body causes gout. Your body naturally makes uric acid when it breaks down chemicals called purines found in certain foods and drinks. Your kidneys usually filter uric acid out of your blood. Gout symptoms come and go in episodes called flares or gout attacks.?Gout attacks usually last a week or two. You might have some flares that last longer than others, and some might cause more severe symptoms. Between attacks, you might not experience any gout symptoms. Risks include: Parent/grandparent with gout Eating a lot of animal proteins ? especially animal flesh, shellfish and foods that contain organ meat. Drinking alcohol regularly. Taking a diuretic medication (water pills). Taking immunosuppressants Take medication as directed Recommend low purine diet Tylenol for pain Follow up with primary care provider, call tomorrow to schedule appointment Go to the ER for worsening symptoms or concerns (more pain, swelling, redness, fever, etc) Patient Language: Croatian Prescriptions: New colchicine 0.6 mg tablet 0.6 mg PO ONCE Qty: 3 0RF Rx Instructions: Take 2 tablets once. Then take one tablet one hour later. No Action lamotrigine 200 mg tablet 200 mg PO DAILY atomoxetine 25 mg capsule 25 mg PO DAILY Follow-up/Referrals: Rigoberto Najera, [Primary Care Provider] -
== END 2024-05-06 19:00 | disposition home or self-care (01) ==
PROVIDERS: Emergency Provider Nurse Practitioner Family; PCP Internal Medicine
DX: M25.562 Pain in left knee (principal); M25.462 Effusion, left knee; M10.9 Gout, unspecified; E78.5 Hyperlipidemia, unspecified
CPT/HCPCS: 99213; G0463